=== PATIENT | male | born 1980 | race Caucasian/White ===

== ENCOUNTER 2017-03-01 12:25 | Inpatient (IN) | payer OTHER ==
[~2017-03-01] VITALS: Ht 172.7 cm; Wt 64.8 kg
[2017-03-01] MEDS ORDERED: ONDANSETRON INJ 2 MG/ML 2 ML VIAL IV STA (12:31)
[2017-03-01] MEDS ORDERED: MoRPHine SULFATE 10 MG/ML CARP/VIAL IV STA (12:31)
[2017-03-01] MEDS ORDERED: ALBUTEROL 0.5% NEB SOLN 2.5 MG/0.5 ML VIAL INH STA (12:34)
[2017-03-01] MEDS ORDERED: MoRPHine SULFATE 2 MG/ML CARP ONE (12:39)
[2017-03-01] MEDS ORDERED: OPTIRAY 320 IV PRN (12:45)
--- NOTE | 2017-03-01 12:52 | EMERGENCY ROOM VISIT NOTE ---
History Report prepared by Renetta: Meek Samuel Under the Supervision of: Dr. Dell Monte M.D. First contact with patient: 12:25 Stated Complaint: chest pain History of Present Illness The patient is a 36 year old male who presents to the Emergency Room with complaints of constant chest pain starting this morning when he woke up. The patient was sleeping when he got chest pain, and it is worse with movement and deep inspiration. The patient was given 81mg of aspirin and nitro, and they did not help with the pain. He states that the pain is radiating into his neck, back , and left shoulder. The patient additionally is complaining of nausea. The patient has a family history of heart disease. He states that he used to smoke. Source of History: patient, EMS Onset: this morning Position: chest Timing: constant Modifying Factors (Worsening): movement, other (Deep inspiration) Associated Symptoms: + neck pain, + nausea, + back pain Note: Associated symptoms: left shoulder pain. Review of Systems See HPI for pertinent positives & negatives. A total of 10 systems reviewed and were otherwise negative. Past Medical & Surgical Medical Problems: (1) No Known Active Medical Problems Family History Heart disease Social History Smoking Status: Former Smoker Housing Status: other (group home) Occupation Status: other (prisoner) Current/Historical Medications Scheduled Aspirin (Aspirin Ec), 81 MG PO DAILY Clindamycin Hcl (Clindamycin Hcl), 150 MG PO BID Ibuprofen (Advil), 200-600 MG PO Q4H Nitroglycerin (Nitrostat), 0.4 MG UT PRN Allergies Coded Allergies: No Known Allergies (Unverified , 03/01/17) Physical Exam Vital Signs Date Time Temp Pulse Resp B/P (MAP) Pulse Ox O2 Delivery O2 Flow Rate FiO2 03/01/17 13:44 85 16 117/70 95 Room Air 03/01/17 12:49 98 Room Air 03/01/17 12:46 94 03/01/17 12:37 98 Room Air 03/01/17 12:30 36.8 80 16 127/86 98 Room Air Physical Exam GENERAL: Patient is a diaphoretic-appearing well-nourished male HEAD: Normocephalic atraumatic EYES: Ocular movements intact pupils equal and react to light OROPHARYNX mucous membranes are moist no exudates present no erythema or edema present NECK: Supple no nuchal rigidity CHEST: Good equal expansion LUNGS: Wheezing at the lung bases. CARDIAC: Normal S1 and S2 ABDOMEN: Soft nontender no guarding BACK: No CVA tenderness EXTREMITIES: No pain upon palpation normal muscle strength in all groups no clubbing cyanosis or edema NEURO: Patient is following commands and answering questions appropriately. Alert and oriented x3 Cranial Nerves 2-12 grossly intact Medical Decision & Procedures Laboratory Results Test 03/01/17 12:30 03/01/17 13:23 03/01/17 13:31 Creatine Kinase MB Ratio (0-3.0) Bedside Hemoglobin 15.0 g/dl (14.0-18.0) Bedside Hematocrit 44 % (42-52) Bedside Sodium 141 mEq/L (135-144) Bedside Potassium 4.9 mEq/L (3.3-5.0) Bedside Chloride 105 mEq/L (101-112) Bedside Total CO2 24 mEq/l (24-31) Anion Gap 18.0 mmol/L (16-25) Bedside Blood Urea Nitrogen 9 mg/dl (7-18) Bedside Creatinine 0.8 mg/dl (0.6-1.3) Bedside Glucose (other) 139 mg/dl (70-99) Bedside Ionized Calcium (Shauna) 1.19 mmol/l (1.12-1.32) Medications Administered Medications (Trade) Dose Ordered Sig/Avinash Route Start Time Stop Time Status Last Admin Dose Admin Morphine Sulfate (MoRPHine SULFATE INJ) 6 mg NOW STAT IV 03/01/17 12:31 03/01/17 12:33 DC 03/01/17 12:31 6 MG Ondansetron HCl (Zofran Inj) 4 mg NOW STAT IV 03/01/17 12:31 03/01/17 12:34 DC 03/01/17 12:31 4 MG Albuterol Sulfate (Ventolin 0.5% 2.5MG/0.5ML Neb) 2.5 mg NOW STAT INH 03/01/17 12:34 03/01/17 12:35 DC 03/01/17 12:34 2.5 MG Morphine Sulfate (MoRPHine SULFATE INJ) 4 mg NOW STAT IV 03/01/17 13:24 03/01/17 13:25 DC 03/01/17 13:24 4 MG ECG Indication: chest pain Rate (beats per minute): 81 Rhythm: sinus rhythm Findings: no acute ischemic change, no ectopy ED Course 1225: Past medical records reviewed. The patient was evaluated in room B1. A complete history and physical examination was performed. Medical Decision Differential diagnosis: Etiologies such as cardiac ischemia, aortic dissection, pulmonary embolism, pneumonia, pneumothorax, musculoskeletal, infections, pericarditis, myocarditis , esophageal rupture, gastrointestinal, as well as others were entertained. Scribe Attestation The scribe's documentation has been prepared under my direction and personally reviewed by me in its entirety. I confirm that the note above accurately reflects all work, treatment, procedures, and medical decision making performed by me.
[2017-03-01] MEDS ORDERED: LIDOCAINE HCL 1% 20 ML VIAL ONE (12:55)
--- NOTE | 2017-03-01 12:55 | DIAGNOSTIC IMAGING REPORT ---
SINGLE VIEW CHEST CLINICAL HISTORY: Atypical chest pain. FINDINGS: An AP, portable, upright chest radiograph is obtained. No prior studies are available for comparison at the time of dictation. The examination is degraded by portable technique and patient rotation. The cardiomediastinal silhouette is unremarkable. There is a left-sided tension pneumothorax with near-complete atelectasis of the left lung and rightward shift the mediastinum in trachea. Slightly increased density of the right hemithorax is likely related to atelectasis. No pneumothorax is seen. The bony thorax is grossly intact. IMPRESSION: There is a large left-sided tension pneumothorax with near-complete atelectasis of the left lung. Emergent findings were called to Dr. Monte in the emergency department at time of interpretation. Electronically signed by: Jeremie Perry M.D. 03/01/2017 12:54 PM Dictated Date/Time: 03/01/2017 12:52 PM
[2017-03-01] MEDS ORDERED: CLIN150C15 PO (13:17)
[2017-03-01] MEDS ORDERED: ASPI81TA28 PO (13:18)
[2017-03-01] MEDS ORDERED: NITR0.4S UT (13:18)
[2017-03-01] MEDS ORDERED: IBUP-1050 PO (13:18)
[2017-03-01] MEDS ORDERED: MoRPHine SULFATE 4 MG/ML 1 ML CARP\\VIAL IV STA (13:24)
--- NOTE | 2017-03-01 13:34 | DIAGNOSTIC IMAGING REPORT ---
CHEST ONE VIEW PORTABLE HISTORY: Left-sided CHEST PAIN COMPARISON: Chest 03/01/2017. FINDINGS: Interval placement left pleural pigtail catheter. This terminates in the left mid pleural space. Partial reexpansion of the left lung with a moderate pneumothorax remaining. Opacity within the left perihilar region likely represent atelectasis. The mediastinal shift has resolved. The right lung is clear. The heart is normal in size. Small amount of left chest wall subcutaneous emphysema. IMPRESSION: Status post placement of a left pleural pigtail catheter which terminates in the left mid pleural space with partial reexpansion of the left lung. There is a moderate pneumothorax remaining on the left. The mediastinal shift has resolved. Electronically signed by: Jeramy García M.D. 03/01/2017 1:32 PM Dictated Date/Time: 03/01/2017 1:30 PM
--- NOTE | 2017-03-01 13:43 | EMERGENCY ROOM VISIT NOTE ---
History Report prepared by Renetta: Brett Venegas Under the Supervision of: Dr. Leonid Larsen M.D. First contact with patient: 13:11 Chief Complaint: CHEST PAIN Stated Complaint: chest pain Nursing Triage Summary: pt awoke this afternoon for lunch stated he developed sudden onset of chest pain he was given 1 baby asa at the detention and assessed by medical who called 911 upon arrival of EMS pt was diaphoretic, pale, sob and hypotensive he was reporting left chest pain with radiation up his neck into his shoulder he was given 3 baby asa and 1 nitro he was unable to be given more because of hypotension History of Present Illness The patient is a 36 year old male who presents to the Emergency Room with complaints of constant chest pain starting this morning when he woke up. The patient was sleeping when he got chest pain, and it is worse with movement and deep inspiration. The patient was given 81mg of aspirin and nitro, and they did not help with the pain. He states that the pain is radiating into his neck, back , and left shoulder. The patient additionally is complaining of nausea. The patient has a family history of heart disease. He states that he used to smoke. Source of History: patient, transfer records, other Onset: this morning Position: chest Timing: constant Modifying Factors (Worsening): movement, other (deep inspiration) Associated Symptoms: + neck pain, + nausea, + back pain Note: Associated symptoms: left shoulder pain Review of Systems See HPI for pertinent positives & negatives. A total of 10 systems reviewed and were otherwise negative. Past Medical & Surgical Medical Problems: (1) No Known Active Medical Problems Old medical records were reviewed. Nurse's notes were reviewed and I agree with. Denies history of pneumothorax or recent, Family History Heart disease Social History Smoking Status: Former Smoker Alcohol Use: none Drug Use: none Housing Status: other (detention) Occupation Status: other (prisoner) Current/Historical Medications Scheduled Aspirin (Aspirin Ec), 81 MG PO DAILY Clindamycin Hcl (Clindamycin Hcl), 150 MG PO BID Ibuprofen (Advil), 200-600 MG PO Q4H Nitroglycerin (Nitrostat), 0.4 MG UT PRN Allergies Coded Allergies: No Known Allergies (Unverified , 03/01/17) Physical Exam Vital Signs Date Time Temp Pulse Resp B/P (MAP) Pulse Ox O2 Delivery O2 Flow Rate FiO2 03/01/17 12:49 98 Room Air 03/01/17 12:46 94 03/01/17 12:37 98 Room Air 03/01/17 12:30 36.8 80 16 127/86 98 Room Air Physical Exam GENERAL: Patient is a diaphoretic-appearing well-nourished male HEAD: Normocephalic atraumatic EYES: Ocular movements intact pupils equal and react to light OROPHARYNX mucous membranes are moist no exudates present no erythema or edema present NECK: Supple no nuchal rigidity CHEST: Good equal expansion LUNGS: Wheezing at the lung bases. Absent breath sounds on left CARDIAC: Normal S1 and S2 ABDOMEN: Soft nontender no guarding BACK: No CVA tenderness EXTREMITIES: No pain upon palpation normal muscle strength in all groups no clubbing cyanosis or edema NEURO: Patient is following commands and answering questions appropriately. Alert and oriented x3 Cranial Nerves 2-12 grossly intact Medical Decision & Procedures ER Provider Diagnostic Interpretation: Radiology results as stated below per my review and radiologist interpretation: CT ANGIOGRAM OF THE CHEST CLINICAL HISTORY: Atypical chest pain. Tension pneumothorax. COMPARISON STUDY: Chest radiograph dated 03/01/2017. TECHNIQUE: Following the IV administration of 112 cc of Optiray 320, CT angiogram of the chest was performed from the upper abdomen to the thoracic inlet utilizing the pulmonary embolus protocol. Images are reviewed in the axial, sagittal, and coronal planes. 3-D MIPS images are created and assessed. IV contrast was administered without complication. A dose lowering technique was utilized adhering to the principles of ALARA. CT DOSE: 205.26 mGy.cm FINDINGS: Thyroid: Imaged portions of the thyroid gland are normal in size and attenuation. Thoracic aorta: The thoracic aorta is normal in caliber and demonstrates standard 3-vessel arch anatomy. No dissection is seen. Pulmonary vasculature: The pulmonary trunk is normal in caliber. There are no filling defects identified in main, lobar, or proximal segmental pulmonary branches to suggest pulmonary embolus. Evaluation of the peripheral vessels is degraded by motion artifact. Heart: The heart is normal in size and configuration, and without pericardial effusion. There are age advanced coronary artery calcifications. Lungs and pleural spaces: Evaluation of lung parenchyma is degraded by motion artifact. A right left-sided chest tube is in place. This enters anterolaterally between the fourth and fifth ribs. There is a moderate to large residual left pneumothorax, with significant atelectasis of the left lung. Emphysematous change with numerous apical blebs are identified. The trachea appears midline. The right lung appears clear. Mediastinum: There is moderate shift the mediastinum. There is no mediastinal lymphadenopathy. Winnie: Clear. Axillae: There is no axillary lymphadenopathy. Upper abdomen: A tiny hiatal hernia is noted. Partially visualized upper abdominal viscera is otherwise within normal limits. Skeletal structures: No lytic or blastic bony lesions are seen. Soft tissues: Subcutaneous emphysema is noted along the left chest wall. IMPRESSION: 1. Motion degraded examination. 2. There is no evidence of pulmonary embolus in the main, lobar, or proximal segmental pulmonary arteries. 3. A left-sided chest tube has been placed. There is a moderate to large residual left pneumothorax with associated atelectasis of left lung and mild rightward shift of the mediastinum. 4. The trachea appears midline. 5. The right lung appears clear. 6. Emphysema with numerous apical blebs. 7. There is age advanced atherosclerotic calcification of the coronary arteries. Electronically signed by: Jeremie Perry M.D. 03/01/2017 2:07 PM Dictated Date/Time: 03/01/2017 2:01 PM SINGLE VIEW CHEST CLINICAL HISTORY: Atypical chest pain. FINDINGS: An AP, portable, upright chest radiograph is obtained. No prior studies are available for comparison at the time of dictation. The examination is degraded by portable technique and patient rotation. The cardiomediastinal silhouette is unremarkable. There is a left-sided tension pneumothorax with near-complete atelectasis of the left lung and rightward shift the mediastinum in trachea. Slightly increased density of the right hemithorax is likely related to atelectasis. No pneumothorax is seen. The bony thorax is grossly intact. IMPRESSION: There is a large left-sided tension pneumothorax with near-complete atelectasis of the left lung. Emergent findings were called to Dr. Monte in the emergency department at time of interpretation. Electronically signed by: Jeremie Perry M.D. 03/01/2017 12:54 PM Dictated Date/Time: 03/01/2017 12:52 PM CHEST ONE VIEW PORTABLE HISTORY: Left-sided CHEST PAIN COMPARISON: Chest 03/01/2017. FINDINGS: Interval placement left pleural pigtail catheter. This terminates in the left mid pleural space. Partial reexpansion of the left lung with a moderate pneumothorax remaining. Opacity within the left perihilar region likely represent atelectasis. The mediastinal shift has resolved. The right lung is clear. The heart is normal in size. Small amount of left chest wall subcutaneous emphysema. IMPRESSION: Status post placement of a left pleural pigtail catheter which terminates in the left mid pleural space with partial reexpansion of the left lung. There is a moderate pneumothorax remaining on the left. The mediastinal shift has resolved. Electronically signed by: Jeramy García M.D. 03/01/2017 1:32 PM Dictated Date/Time: 03/01/2017 1:30 PM Laboratory Results Laboratory studies as stated above per my review. Medications Administered Medications (Trade) Dose Ordered Sig/Avinash Route Start Time Stop Time Status Last Admin Dose Admin Morphine Sulfate (MoRPHine SULFATE INJ) 6 mg NOW STAT IV 03/01/17 12:31 03/01/17 12:33 DC 03/01/17 12:31 6 MG Ondansetron HCl (Zofran Inj) 4 mg NOW STAT IV 03/01/17 12:31 03/01/17 12:34 DC 03/01/17 12:31 4 MG Albuterol Sulfate (Ventolin 0.5% 2.5MG/0.5ML Neb) 2.5 mg NOW STAT INH 03/01/17 12:34 03/01/17 12:35 DC 03/01/17 12:34 2.5 MG Procedure Tube Thoracostomy Indication: Left-sided tension Pneumothorax This patient has a left-sided tension pneumothorax and needs emergent chest tube placement. I explained the risks and benefits and he freely consented. The area was numbed with 1% lidocaine. Using the fifth intercostal space the chest tube was inserted. I use the pigtail chest tube and the Seldinger technique. With the needle insertion, there was a gush of air felt and using Seldinger technique the pigtail catheter was easily placed and secured. It was attached to the Pleur-evac suction. The patient tolerated the procedure without difficulty or complications. The follow-up chest x-ray shows partial expansion of the lungs and room resolution of the tension aspect. The patient is doing much better and feels significantly better. , ECG Indication: SOB/dyspnea Rate (beats per minute): 81 Rhythm: normal sinus Findings: no acute ischemic change, no ectopy ED Course 1225: The patient was evaluated by Dr. Monte, ED. 1231: Dr. Monte ordered Ondansetron HCl 4mg IV, Morphine Sulfate 6mg IV 1234: Dr. Monte ordered Albuterol Sulfate 2.5mg INH 1252: Past medical records reviewed. The patient was evaluated in room B02, and a complete history and physical examination were performed. A pigtail chest tube was placed. 1255: Ordererd Lidocaine HCl 20ml .ROUTE 1313: I discussed the patient's case with Dr. Hsu, Thoracic Surgery. He will evaluate the patient. 1319: I reevaluated the patient. He is doing well. I discussed his second chest x-ray with him. 1322: I reevaluated the patient, and he is feeling much better. 1324: Ordered Morphine Sulfate 4mg IV 1408: I discussed the patient's case with Susanna Pepper PA-C, [facility]. The patient will be evaluated for further management and care. 1409: I reevaluated the patient. He is in no distress. 1427: I reevaluated the patient. Dr. Arizmendi, [facility], is in the room now. 1519: I reevaluated the patient, and he is still resting comfortably. Medical Decision Differentials include, but are not limited to; infections, reactive airway disease, pneumonia, pneumothorax, COPD, CHF, cardiac ischemia, pulmonary embolism, musculoskeletal, gastrointestinal. This patient comes in as described above. He was initially seen by Dr. Monte who placed some orders and had to see a critical patient he asked me to see the patient as the patient was found of tension pneumothorax. I went in to see the patient he was on supplement oxygen had a normal blood pressure 100% pulse ox. Given his tension pneumothorax, he needed a chest tube placed emergently. The procedures plain to the patient and he freely consented. A chest tube was placed as outlined above using a pigtail catheter. This minimally invasive compared to a standard chest tube and he tolerated this well and is feeling significantly better. He has no acute electrolyte or metabolic abnormalities. His has nothing to suggest cardiac disease. I have discussed with Dr. Hsu. He is in the operating room as going to to see the patient hospital as well. With the tube placement along has started reexpand he still does have a moderate size residual pneumothorax but is doing much better. He will be admitted for further treatment and evaluation. The hospitalist has also seen him in the ER. While he was here in the ER he remained stable is feeling much better. Dr. Hsu did come and see him. They are going to place a larger tube as he has not fully reexpanded with a smaller tube. He will be further admitted. Medication Reconcilliation Current Medication List: was personally reviewed by me Blood Pressure Screening Patient's blood pressure: Normal blood pressure Blood pressure disposition: Did not require urgent referral Consults Time Called: 1312 Consulting Physician: Dr. Hsu, Thoracic Surgery Returned Call: 1313 I discussed the patient's case with Dr. Hsu, Thoracic Surgery. He will evaluate the patient. Additional Consults: Time Called: 1315 Consulted Physician: Susanna Pepper PA-C, [facility] Returned Call: 1406 Additional Comments: I discussed the patient's case [facility] The patient will be evaluated for further management and care. Impression Primary Impression: Tension pneumothorax, spontaneous Critical Care I have personally spent greater than 30 minutes of critical care time in the direct management of this patient. This includes bedside care, interpretation of diagnostic studies, and testing, discussion with consultants, patient, and family members, and other required patient management activities. This 30 minutes is in excess of all separately billable procedures. Scribe Attestation The scribe's documentation has been prepared under my direction and personally reviewed by me in its entirety. I confirm that the note above accurately reflects all work, treatment, procedures, and medical decision making performed by me. Departure Information Dispostion Being Evaluated By Hospitalist Referrals [facility] (PCP) Patient Instructions My [facility]
[2017-03-01 13:45] LABS: ISTAT CREATININE 0.8 mg/dl (0.6-1.3); ISTAT IONIZED CALCIUM 1.19 mmol/l (1.12-1.32)
[2017-03-01 13:56] LABS: BASO % 0.2 %; BASO ABS # 0.02 K/uL (0-0.2); COMPLETE YES; EOS % 0.7 %; HEMATOCRIT 41.8 % (42-52); IG% 0.8 %; LYMPH % 14.4 %; LYMPH ABS # 1.82 K/uL (1.2-3.4); MEAN CELL VOLUME 88.9 fL (80-100); MEAN CORPUSCULAR HEMOGLOBIN 30.9 pg (25-34); MEAN CORPUSCULAR HGB CONC 34.7 g/dl (32-36); MEAN PLATELET VOLUME 10.3 fL (7.4-10.4); MONO % 4.3 %; NEUT % 79.6 %; PLATELET COUNT 200 K/uL (130-400)
[2017-03-01 13:58] LABS: ALT/SGPT 61 U/L (12-78); AST/SGOT 23 U/L (15-37); BLOOD UREA NITROGEN 8 mg/dl (7-18); BUN/CREATININE RATIO 8.9 (10-20); CALCIUM 8.8 mg/dl (8.5-10.1); CARBON DIOXIDE 27 mmol/L (21-32); CHLORIDE 107 mmol/L (98-107); CREATININE 0.87 mg/dl (0.60-1.40); GLUCOSE 137 mg/dl (70-99); POTASSIUM 4.9 mmol/L (3.5-5.1); SODIUM 139 mmol/L (136-145)
[2017-03-01 14:04] LABS: ALKALINE PHOSPHATASE 92 U/L (45-117); CKMB/CK RATIO 0.8 (0-3.0)
--- NOTE | 2017-03-01 14:09 | DIAGNOSTIC IMAGING REPORT ---
CT ANGIOGRAM OF THE CHEST CLINICAL HISTORY: Atypical chest pain. Tension pneumothorax. COMPARISON STUDY: Chest radiograph dated 03/01/2017. TECHNIQUE: Following the IV administration of 112 cc of Optiray 320, CT angiogram of the chest was performed from the upper abdomen to the thoracic inlet utilizing the pulmonary embolus protocol. Images are reviewed in the axial, sagittal, and coronal planes. 3-D MIPS images are created and assessed. IV contrast was administered without complication. A dose lowering technique was utilized adhering to the principles of ALARA. CT DOSE: 205.26 mGy.cm FINDINGS: Thyroid: Imaged portions of the thyroid gland are normal in size and attenuation. Thoracic aorta: The thoracic aorta is normal in caliber and demonstrates standard 3-vessel arch anatomy. No dissection is seen. Pulmonary vasculature: The pulmonary trunk is normal in caliber. There are no filling defects identified in main, lobar, or proximal segmental pulmonary branches to suggest pulmonary embolus. Evaluation of the peripheral vessels is degraded by motion artifact. Heart: The heart is normal in size and configuration, and without pericardial effusion. There are age advanced coronary artery calcifications. Lungs and pleural spaces: Evaluation of lung parenchyma is degraded by motion artifact. A right left-sided chest tube is in place. This enters anterolaterally between the fourth and fifth ribs. There is a moderate to large residual left pneumothorax, with significant atelectasis of the left lung. Emphysematous change with numerous apical blebs are identified. The trachea appears midline. The right lung appears clear. Mediastinum: There is moderate shift the mediastinum. There is no mediastinal lymphadenopathy. Winnie: Clear. Axillae: There is no axillary lymphadenopathy. Upper abdomen: A tiny hiatal hernia is noted. Partially visualized upper abdominal viscera is otherwise within normal limits. Skeletal structures: No lytic or blastic bony lesions are seen. Soft tissues: Subcutaneous emphysema is noted along the left chest wall. IMPRESSION: 1. Motion degraded examination. 2. There is no evidence of pulmonary embolus in the main, lobar, or proximal segmental pulmonary arteries. 3. A left-sided chest tube has been placed. There is a moderate to large residual left pneumothorax with associated atelectasis of left lung and mild rightward shift of the mediastinum. 4. The trachea appears midline. 5. The right lung appears clear. 6. Emphysema with numerous apical blebs. 7. There is age advanced atherosclerotic calcification of the coronary arteries. Electronically signed by: Jeremie Perry M.D. 03/01/2017 2:07 PM Dictated Date/Time: 03/01/2017 2:01 PM
[2017-03-01] MEDS ORDERED: ACETAMINOPHEN 325 MG TAB PO PRN (14:45)
[2017-03-01] MEDS ORDERED: ALUMINUM/MAGNESIUM/SIMETH (MAALOX MAX) 30 ML UDC PO PRN (14:45)
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
[2017-03-01] MEDS ORDERED: LIDOCAINE/EPINEPHRINE 1% 20 ML VIAL ONE (16:06)
[2017-03-01] MEDS ORDERED: KETOROLAC TROMETHAMINE 15 MG/ML VIAL IV PRN (16:45)
[2017-03-01] MEDS ORDERED: OXYCODONE HCL IR 5 MG TAB (IMMEDIATE RELEASE) PO PRN (16:45)
--- NOTE | 2017-03-01 16:58 | DIAGNOSTIC IMAGING REPORT ---
CHEST ONE VIEW PORTABLE HISTORY: 36 years-old Male left chest tube placement status post left-sided chest tube placement COMPARISON: Chest radiograph 03/01/2017 TECHNIQUE: Portable upright AP view of the chest FINDINGS: Cardiomediastinal and hilar silhouettes are within normal limits. There has been interval placement of a large bore left-sided chest tube with distal tip overlying the left lung apex. There is subcutaneous emphysema along the left lateral chest wall. The pigtail catheter has previously been removed. There is improved aeration of the left lung with linear subsegmental opacities seen within the left midlung and left lung base. No definite left-sided pneumothorax identified. Right lung is clear. The bones are grossly intact. IMPRESSION: 1. Status post placement of a large bore left-sided chest tube with distal tip overlying the left lung apex. There is improved aeration of the left lung without definite pneumothorax identified. Continued follow-up recommended. 2. Interval removal of the left pigtail pleural catheter. 3. Subsegmental linear opacities of the left midlung and left lung base suggest atelectasis. The above report was generated using voice recognition software. It may contain grammatical, syntax or spelling errors. Electronically signed by: Wes Drake M.D. 03/01/2017 4:57 PM Dictated Date/Time: 03/01/2017 4:54 PM
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
[2017-03-01 17:24] VITALS: BP 143/87; PULSE 81; TEMP 36.9; Ht 172.7 cm; Wt 64.8 kg
[2017-03-01] MEDS ORDERED: INFLUENZA ADMINISTRATION CHARGE ONE (18:30)
[2017-03-01] MEDS ORDERED: INFLUENZA VIRUS QUAD VACCINE 0.5 ML SYR IM. ONE (18:30)
[2017-03-01] MEDS: ACETAMINOPHEN 325 MG TAB PO SCH ×2 (19:21→23:32)
[2017-03-01 19:52] VITALS: BP 125/81; PULSE 70; TEMP 36.9; O2SAT 95
[2017-03-02] VITALS (8 sets, daily range): BP systolic 121–136; BP diastolic 73–86; PULSE 61–73; TEMP 36.3–36.9; O2SAT 94–99
[2017-03-02] MEDS: ACETAMINOPHEN 325 MG TAB PO SCH ×3 (05:46→16:48)
--- NOTE | 2017-03-02 07:23 | DIAGNOSTIC IMAGING REPORT ---
CHEST ONE VIEW PORTABLE CLINICAL HISTORY: 36 years-old Male presenting with pneumothorax. TECHNIQUE: Portable upright AP view of the chest was obtained. COMPARISON: 03/01/2017. FINDINGS: Large bore left pleural drain terminates at the left apex. Associated subcutaneous/soft tissue emphysema over the left lateral chest wall. Cardiac mediastinal silhouette normal. Slight decreased aeration of the left lung with significantly increased size of the left pneumothorax, which is primarily anterolateral in location. Right lung and pleural space clear. Osseous structures normal. Upper abdomen normal. IMPRESSION: 1. Significant interval increase in size of the left pneumothorax. Given the unchanged location of the left pleural drain, the suggest air leak. The report will be called/faxed according to standard departmental protocol. Electronically signed by: Josué oHrton M.D. 03/02/2017 7:22 AM Dictated Date/Time: 03/02/2017 7:20 AM
--- NOTE | 2017-03-02 07:29 | Surgery Progress Note ---
Subjective Date of Service: Mar 02, 2017. Pt. notes breathing is better since chest tube placed. He notes minor discomfort from chest tube. Objective Vitals Date Time Temp Pulse Resp B/P (MAP) Pulse Ox O2 Delivery O2 Flow Rate FiO2 03/02/17 04:29 36.7 61 17 128/77 (94) 95 Room Air 03/02/17 04:00 Room Air 03/02/17 00:28 36.6 62 18 129/76 (93) 96 Room Air 03/02/17 00:00 Room Air 03/01/17 20:00 Room Air 03/01/17 19:52 36.9 70 16 125/81 (96) 95 Room Air 03/01/17 17:24 36.9 81 18 143/87 Room Air 03/01/17 16:36 89 03/01/17 16:33 89 16 125/84 95 Room Air 03/01/17 14:56 71 16 120/67 95 Room Air 03/01/17 13:44 85 16 117/70 95 Room Air 03/01/17 12:49 98 Room Air 03/01/17 12:46 94 03/01/17 12:37 98 Room Air 03/01/17 12:30 36.8 80 16 127/86 98 Room Air Physical Exam General: + well developed, + well nourished, No distress CV: + RRR Pulmonary: + lungs clear, No accessory muscle use, No respiratory distress Extremities: No calf tenderness Neurologic: + alert & oriented x 3 Radiology CXR shows left pneumothorax smaller than what was noted at time of admission ( CXR taken with CT on water seal) Drains / Tubes chest tube (air leak noted; minimzl drainage since insertion ) Assessment & Plan 36 year old male with spontaneous pneumothorax -concern noted for tension pneumothorax in ED: -ED physician insertion pigtail catheter with clinical improvement, but incomplete resolution of pneumothorax CT scan of chest (03/01/17) showed presence of blebs -20 Mexican chest tube inserted in ED with near complete resolution of pneumothorax -continue chest tube -due to continue air leak pt. will require surgical bleb stapling--will arrange for 03/04/17 -encourage ambulation and use of IS OTHER -add lovenox for DVT prevention
[2017-03-02 07:52] LABS: MEAN CELL VOLUME 89.3 fL (80-100); MEAN CORPUSCULAR HEMOGLOBIN 30.5 pg (25-34); MEAN CORPUSCULAR HGB CONC 34.1 g/dl (32-36); MEAN PLATELET VOLUME 9.9 fL (7.4-10.4); PLATELET COUNT 189 K/uL (130-400); RED BLOOD COUNT 4.59 M/uL (4.7-6.1); WHITE BLOOD COUNT 9.31 K/uL (4.8-10.8)
[2017-03-02 08:17] LABS: BUN/CREATININE RATIO 14.1 (10-20); CALCIUM 9.4 mg/dl (8.5-10.1); CREATININE 0.92 mg/dl (0.60-1.40); POTASSIUM 4.2 mmol/L (3.5-5.1)
[2017-03-02] MEDS ORDERED: ASPIRIN 81 MG ECTAB PO SCH (09:00)
[2017-03-02 11:52] LABS: PROTHROMBIN TIME (PATIENT) 10.7 SECONDS (9.0-12.0)
[2017-03-02] MEDS ORDERED: ENOXAPARIN 40 MG/0.4 ML SYR SQ ONE (12:00)
--- NOTE | 2017-03-02 14:24 | Anesthesiology Progress Note ---
Anesthesia Progress Note Date of Service Mar 02, 2017. Progress Notes Pt is scheduled for L VATs on 03/04/17. Pt is a 36M h/o asthma, smoker who presented with a L sided pneumothorax. A chest tube was placed, but the pneumothorax persists. The pt has good functional status. The pt is an acceptable candidate for general anesthesia. Consent was obtained from the patient. All questions/concerns were addressed.
--- NOTE | 2017-03-02 18:08 | Progress Note ---
Medicine Progress Note Date & Time of Visit: Mar 02, 2017 at 16:20 . Subjective Presented to the ED yesterday with spontaneous left pneumothorax. Pleural pigtail catheter placement with partial expansion of the left lung. Thoracic Surgery consulted. 20 Zimbabwean chest tube subsequently inserted with nearly complete resolution of the thorax. Has some discomfort from the chest tube. No shortness of breath. No nausea or vomiting. No fever. . Objective Last 8 Hrs Date Time Temp Pulse Resp B/P (MAP) Pulse Ox O2 Delivery O2 Flow Rate FiO2 03/02/17 16:00 Room Air 03/02/17 15:28 36.5 73 18 121/73 (89) 96 Room Air 03/02/17 12:00 36.7 69 16 129/79 (96) 96 03/02/17 12:00 Room Air Physical Exam: General- no distress Neck- trachea midline Lungs- clear to auscultation Heart- regular Thorax- left-sided chest tube Abdomen- normal bowel sounds, soft, nontender Extremities- SCDs applied, no edema or calf tenderness Neuro- alert . Laboratory Results: Last 24 Hours Test 03/02/17 07:26 03/02/17 11:26 White Blood Count 9.31 K/uL Red Blood Count 4.59 M/uL Hemoglobin 14.0 g/dL Hematocrit 41.0 % Mean Corpuscular Volume 89.3 fL Mean Corpuscular Hemoglobin 30.5 pg Mean Corpuscular Hemoglobin Concent 34.1 g/dl RDW Standard Deviation 41.9 fL RDW Coefficient of Variation 12.9 % Platelet Count 189 K/uL Mean Platelet Volume 9.9 fL Sodium Level 140 mmol/L Potassium Level 4.2 mmol/L Chloride Level 105 mmol/L Carbon Dioxide Level 29 mmol/L Anion Gap 7.0 mmol/L Blood Urea Nitrogen 13 mg/dl Creatinine 0.92 mg/dl Est Creatinine Clear Calc Drug Dose 96.7 ml/min Estimated GFR () 121.9 Estimated GFR (Non- 105.1 BUN/Creatinine Ratio 14.1 Random Glucose 86 mg/dl Calcium Level 9.4 mg/dl Prothrombin Time 10.7 SECONDS Prothromb Time International Ratio 1.0 Date/Time Source Procedure Growth Status 03/01/17 19:25 Nasal MRSA DNA Surveillance Screen - Final Specimen Negative for MRSA by DNA Probe Complete Assessment & Plan SPONTANEOUS LEFT TENSION PNEUMOTHORAX Presented with acute chest pain, dyspnea, hypotension. Found to have a tension pneumothorax. Pleural pigtail catheter insertion with partial reexpansion of left lung. 20 Zimbabwean chest tube inserted with better expansion of the lung. Thoracic Surgery consulted. CT imaging demonstrated blebs. Has persistent air leak. Stapling of blebs anticipated on 03/04. VTE PROPHYLAXIS SCDs initially ordered. SQ enoxaparin added. Ambulate as able. DISPOSITION Anticipate return to [facility] when medically stable. . Current Inpatient Medications: Current Inpatient Medications Medications (Trade) Dose Ordered Sig/Avinash Route Start Time Stop Time Status Last Admin Dose Admin Ioversol (Optiray 320) 100 ml UD PRN IV 03/01/17 12:45 03/05/17 12:44 Aspirin (Ecotrin Tab) 81 mg DAILY PO 03/02/17 09:00 04/01/17 08:59 03/02/17 07:49 81 MG Al Hydrox/Mg Hydrox/Simethicone (Maalox Max Susp) 15 ml Q4H PRN PO 03/01/17 14:45 03/31/17 14:44 Morphine Sulfate (MoRPHine SULFATE INJ) 2 mg Q4 PRN IV 03/01/17 14:45 03/15/17 14:44 Acetaminophen (Tylenol Tab) 650 mg Q6 PO 03/01/17 18:00 03/31/17 17:59 03/02/17 16:48 650 MG Ketorolac Tromethamine (Toradol Inj) 15 mg Q6H PRN IV 03/01/17 16:45 03/06/17 16:44 03/01/17 21:01 15 MG Oxycodone HCl (Roxicodone Immediate Rel Tab) 5 mg Q6H PRN PO 03/01/17 16:45 03/15/17 16:44 Enoxaparin Sodium (Lovenox Inj) 40 mg QAM SQ 03/03/17 09:00 04/02/17 08:59
[2017-03-03] VITALS (11 sets, daily range): BP systolic 121–159; BP diastolic 73–95; PULSE 63–73; TEMP 36.4–36.8; O2SAT 93–96
[2017-03-03] MEDS: MoRPHine SULFATE 2 MG/ML CARP IV PRN (02:44)
[2017-03-03] MEDS: ACETAMINOPHEN 325 MG TAB PO SCH ×4 (06:26→18:05)
--- NOTE | 2017-03-03 07:37 | DIAGNOSTIC IMAGING REPORT ---
CHEST ONE VIEW PORTABLE HISTORY: 36 years-old Male pneumothorax follow-up study in a patient with pneumothorax. COMPARISON: Chest radiograph 03/02/2017 TECHNIQUE: Portable upright AP view of the chest FINDINGS: Cardiac silhouette is within normal limits. Right lung is clear. Large bore left-sided chest tube is again seen with distal tip projecting at the left lung apex. Moderate sized left pneumothorax is again seen which appears with stable to slightly decreased in size from comparison study 03/02/2017. Linear subsegmental opacities of the left lung base suggest atelectasis. Hyperinflation with emphysematous changes redemonstrated. Bones are grossly intact. IMPRESSION: Stable positioning of left-sided chest tube with stable to slightly decreased size of left pneumothorax. The above report was generated using voice recognition software. It may contain grammatical, syntax or spelling errors. Electronically signed by: Wes Drake M.D. 03/03/2017 7:36 AM Dictated Date/Time: 03/03/2017 7:33 AM
[2017-03-03] MEDS: ENOXAPARIN 40 MG/0.4 ML SYR SQ SCH (07:50)
--- NOTE | 2017-03-03 11:34 | Surgery Progress Note ---
Subjective Date of Service: Mar 03, 2017. Pt. offers no new complaint--state breathing is better than what he noted prior to admission. Objective Vitals Date Time Temp Pulse Resp B/P (MAP) Pulse Ox O2 Delivery O2 Flow Rate FiO2 03/03/17 08:00 96 Room Air 03/03/17 07:48 36.5 63 22 146/73 (97) 96 Room Air 03/03/17 04:00 95 Room Air 03/03/17 03:50 36.4 66 20 122/74 (90) 95 Room Air 03/02/17 23:59 Room Air 03/02/17 23:11 36.9 68 18 136/86 (103) 94 Room Air 03/02/17 20:00 99 Room Air 03/02/17 19:24 36.3 65 18 122/85 (97) 97 Room Air 03/02/17 16:00 Room Air 03/02/17 15:28 36.5 73 18 121/73 (89) 96 Room Air 03/02/17 12:00 36.7 69 16 129/79 (96) 96 03/02/17 12:00 Room Air Physical Exam General: + well developed, + well nourished, No distress CV: + RRR Pulmonary: + lungs clear, No accessory muscle use, No respiratory distress Radiology CXR today shows left sided pneumothorax present Drains / Tubes chest tube (air leak noted; minimal drainage last 24 hours) Assessment & Plan 36 year old male with spontaneous pneumothorax -concern noted for tension pneumothorax in ED: -ED physician insertion pigtail catheter with clinical improvement, but incomplete resolution of pneumothorax CT scan of chest (03/01/17) showed presence of blebs -20 Vietnamese chest tube inserted in ED with near complete resolution of pneumothorax -continue chest tube -due to continue air leak pt. will require surgical bleb stapling--tent. planned for 03/04/17 -encourage ambulation and use of IS OTHER -lovenox for DVT prevention-will hold dose tomorrow due to planned surgery
--- NOTE | 2017-03-03 17:22 | Progress Note ---
Medicine Progress Note Date & Time of Visit: Mar 03, 2017 at 14:30 . Subjective Experienced some discomfort from left-sided chest tube. Otherwise, doing well. No shortness of breath. . Objective Last 8 Hrs Date Time Temp Pulse Resp B/P (MAP) Pulse Ox O2 Delivery O2 Flow Rate FiO2 03/03/17 17:17 36.7 67 18 134/89 (104) 96 Room Air 03/03/17 16:00 96 Room Air 03/03/17 12:01 36.6 65 20 121/75 (90) 96 Room Air 03/03/17 12:00 96 Room Air Physical Exam: General- no distress Neck- trachea midline Lungs- clear to auscultation Heart- regular Thorax- left-sided chest tube Abdomen- normal bowel sounds, soft, nontender Extremities- no edema or calf tenderness Neuro- alert . Diagnostic Imaging: CHEST ONE VIEW PORTABLE FINDINGS: Cardiac silhouette is within normal limits. Right lung is clear. Large bore left-sided chest tube is again seen with distal tip projecting at the left lung apex. Moderate sized left pneumothorax is again seen which appears with stable to slightly decreased in size from comparison study 03/02/2017. Linear subsegmental opacities of the left lung base suggest atelectasis. Hyperinflation with emphysematous changes redemonstrated. Bones are grossly intact. IMPRESSION: Stable positioning of left-sided chest tube with stable to slightly decreased size of left pneumothorax. Electronically signed by: Wes Drake M.D. 03/03/2017 7:36 AM Dictated Date/Time: 03/03/2017 7:33 AM . Assessment & Plan SPONTANEOUS LEFT TENSION PNEUMOTHORAX Presented with acute chest pain, dyspnea, hypotension. Found to have a tension pneumothorax. Pleural pigtail catheter insertion with partial reexpansion of left lung. 20 Latvian chest tube inserted with better expansion of the lung. Thoracic Surgery consulted. CT imaging demonstrated blebs. Stapling of blebs anticipated on 03/04. VTE PROPHYLAXIS SCDs initially ordered. SQ enoxaparin added- hold tomorrow morning for surgery. Ambulate as able. DISPOSITION Anticipate return to [facility] when medically stable. . Current Inpatient Medications: Current Inpatient Medications Medications (Trade) Dose Ordered Sig/Avinash Route Start Time Stop Time Status Last Admin Dose Admin Ioversol (Optiray 320) 100 ml UD PRN IV 03/01/17 12:45 03/05/17 12:44 Al Hydrox/Mg Hydrox/Simethicone (Maalox Max Susp) 15 ml Q4H PRN PO 03/01/17 14:45 03/31/17 14:44 Morphine Sulfate (MoRPHine SULFATE INJ) 2 mg Q4 PRN IV 03/01/17 14:45 03/15/17 14:44 03/03/17 02:44 2 MG Acetaminophen (Tylenol Tab) 650 mg Q6 PO 03/01/17 18:00 03/31/17 17:59 03/03/17 07:49 650 MG Ketorolac Tromethamine (Toradol Inj) 15 mg Q6H PRN IV 03/01/17 16:45 03/06/17 16:44 03/01/17 21:01 15 MG Oxycodone HCl (Roxicodone Immediate Rel Tab) 5 mg Q6H PRN PO 03/01/17 16:45 03/15/17 16:44 Enoxaparin Sodium (Lovenox Inj) 40 mg QAM SQ 03/03/17 09:00 04/02/17 08:59 03/03/17 07:50 40 MG
[2017-03-04] VITALS (13 sets, daily range): BP systolic 125–146; BP diastolic 68–95; PULSE 64–80; TEMP 36.5–37.2; O2SAT 94–98
[2017-03-04] MEDS: ACETAMINOPHEN 325 MG TAB PO SCH ×4 (00:12→23:44)
[2017-03-04] MEDS: MoRPHine SULFATE 2 MG/ML CARP IV PRN (00:12)
--- NOTE | 2017-03-04 09:01 | History & Physical Bridge Note ---
H&P Re-Evaluation Bridge Note: I have examined the patient, reviewed the History & Physical and in the interval since the performance of the History & Physical I have noted the following changes of clinical significance: He has a persitent air leak and large apical blebs noted on CV Scan. He will require a thorascopic bleb resection. Will proceed today. Risks and benefits explained.No changes noted
[2017-03-04] MEDS ORDERED: MIDAZOLAM HCL 1 MG/ML 2ML VIAL ONE (11:01)
[2017-03-04] MEDS ORDERED: FENTANYL CITRATE INJ 50 MCG/1 ML 2 ML VIAL ONE (11:01)
[2017-03-04] MEDS ORDERED: LABETALOL HCL IV 5 MG/ML 20ML IV PRN (11:15)
[2017-03-04] MEDS ORDERED: EpHEDrine SULFATE INJ 50 MG/ML AMP IV PRN (11:15)
[2017-03-04] MEDS ORDERED: ATROPINE SULFATE 0.1 MG/ML 5ML SYR IV PRN (11:15)
[2017-03-04] MEDS ORDERED: ONDANSETRON INJ 2 MG/ML 2 ML VIAL IV PRN ×2 (11:15→12:30)
[2017-03-04] MEDS ORDERED: HYDROmorphone INJ 1 MG/ML SYR IV PRN (11:15)
[2017-03-04] MEDS ORDERED: MEPERIDINE HCL 25 MG/ML CARP IV PRN (11:15)
[2017-03-04] MEDS ORDERED: FENTANYL CITRATE INJ 50 MCG/1 ML 2 ML VIAL IV PRN (11:15)
[2017-03-04] MEDS ORDERED: BUPIVACAINE LIPOSOME 1/3% 266 MG/20 ML VIAL INFIL ONE (11:37)
[2017-03-04] MEDS ORDERED: SODIUM CHLORIDE 0.9% PF 50 ML VIAL ONE (11:37)
[2017-03-04] MEDS ORDERED: ONDANSETRON INJ 2 MG/ML 2 ML VIAL ONE (12:21)
[2017-03-04] MEDS ORDERED: DEXAMETHASONE SOD INJ 4 MG/ML VIAL ONE (12:21)
[2017-03-04] MEDS ORDERED: PROPOFOL IV EMULSION 10 MG/ML 20 ML VIAL IV ONE (12:21)
[2017-03-04] MEDS ORDERED: GLYCOPYRROLATE INJ 0.2 MG/ML VIAL ONE (12:21)
[2017-03-04] MEDS ORDERED: NEOSTIGMINE METHYLSULFATE 5 MG/5 ML SYR ONE (12:21)
[2017-03-04] MEDS ORDERED: LIDOCAINE HCL 2% 2 ML VIAL (20MG/ML) ONE (12:21)
[2017-03-04] MEDS ORDERED: ROCURONIUM BROMIDE 10 MG/ML 5 ML VIAL IV ONE (12:21)
[2017-03-04] MEDS ORDERED: CEFAZOLIN SOD 1 GM VIAL ONE (12:41)
[2017-03-04] MEDS: D5W AND 1/2NSS 1,000 ML IV SCH ×2 (12:45→21:59)
--- NOTE | 2017-03-04 13:06 | DIAGNOSTIC IMAGING REPORT ---
CHEST ONE VIEW PORTABLE CLINICAL HISTORY: 36 years-old Male presenting with bleb stapling . TECHNIQUE: Portable upright AP view of the chest was obtained. COMPARISON: 03/03/2017. FINDINGS: Large bore left pleural drain terminates at the left apex, unchanged. Associated soft tissue emphysema along the left lateral chest wall. Cardiomediastinal silhouette normal. Linear opacities in the mid to lower right lung and left mid lung, slightly increased from prior. No significant residual pneumothorax. Osseous structures normal. Upper abdomen normal. IMPRESSION: 1. No significant residual left pneumothorax with stable positioning of the large bore left pleural drain. 2. Stable slightly increased bilateral atelectasis. Electronically signed by: Josué Horton M.D. 03/04/2017 1:05 PM Dictated Date/Time: 03/04/2017 1:02 PM
--- NOTE | 2017-03-04 13:50 | Anesthesiology Progress Note ---
Anesthesia Post Op Note Date & Time Mar 04, 2017 at 13:50 Vital Signs Pain Intensity: 0 Vital Signs Past 12 Hours Date Time Temp Pulse Resp B/P (MAP) Pulse Ox O2 Delivery O2 Flow Rate FiO2 03/04/17 13:15 36.4 65 16 149/100 99 Nasal Cannula 2 03/04/17 13:05 67 14 149/97 99 Nasal Cannula 2 03/04/17 12:55 63 15 159/103 100 Oxymask 8 03/04/17 12:45 80 16 149/109 100 Oxymask 8 03/04/17 12:37 36.6 91 16 163/90 96 Oxymask 8 03/04/17 08:00 96 Room Air 03/04/17 07:49 36.6 80 20 128/88 (101) 95 Room Air 03/04/17 04:12 36.6 64 18 146/95 (112) 94 Room Air 03/04/17 04:00 Room Air Notes Mental Status: alert / awake / arousable, participated in evaluation Pt Amnestic to Procedure: Yes Nausea / Vomiting: adequately controlled Pain: adequately controlled Airway Patency, RR, SpO2: stable & adequate BP & HR: stable & adequate Hydration State: stable & adequate Anesthetic Complications: no major complications apparent
--- NOTE | 2017-03-04 14:09 | OPERATIVE REPORT ---
DATE OF OPERATION: 03/04/2017 PREOPERATIVE DIAGNOSES: 1. Spontaneous left pneumothorax. 2. Apical blebs. 3. Persistent air leak. POSTOPERATIVE DIAGNOSES: Same. PROCEDURE: 1. Left thoracoscopy with apical resection of left apical blebs. 2. Wedge resection of blebs, superior segment left lower lobe. SURGEON: Dr. Hsu. CLEANING SPECIALIST: MARIO Chapman. ANESTHESIA: General anesthesia endotracheal intubation. SPECIFICS OF PROCEDURE: This is a 36-year-old smoker who is currently incarcerated at [facility], who presented with a spontaneous pneumothorax on Saturday with under some pressure. We placed a chest tube in the Emergency Room and admitted him. A CT scan showed he did have blebs of the apical segment of the left upper lobe. I admitted him and his air leak in the chest tube did not stop. For this reason, I told him I thought that excising this would be helpful. DESCRIPTION OF PROCEDURE: On 03/04/2017, the patient was brought to the operating room and underwent uncomplicated thoracoscopic resection. We did this totally thoracoscopically with two 5 mm ports and a 12 mm port. A chest tube was placed through the original chest tube site at the conclusion of the case. We wedged out the apical segment of the left upper lobe and a small segment of the superior segment of the left lower lobe. There was no air leak at the conclusion of the case. MARIO Chapman was there for the entirety of the case acting as a front office assistant. We proceeded on the morning of 03/04/2017. The patient's chest tube was removed after he had been placed in right lateral decubitus position and his left chest was then prepped and draped in usual sterile fashion. Very low ventilatory volumes were used for hand ventilating. After prepping and draping, administering an appropriate prophylactic antibiotics and following a time out, I went through this original chest tube site with a 5 mm port and placed a 5 mm scope. It could be seen there were obvious bullae but these were tethered to the apex. Another 5 mm port was placed below the scapula and a 12 mm port was placed a few interspaces below more anterior. With the use of these, I used a Harmonic scalpel and using retraction, I took down these adhesions. I could easily see these bullae and we saw the area where the leak was. Using an Endo-RODRÍGUEZ stapler, I fired across this and removed a generous portion of the left upper lobe. Upon inflating the lung, we saw no air leak at the staple lines or from the left upper lobe. There was bullae in the superior segment of the left lower lobe and I excised this using a single firing of the Endo-RODRÍGUEZ stapler. Both these bullae delivered off the field using an Endobag. We saw no significant air leak. A chest tube was reinserted through the anterior port and sutured in place with heavy silk suture directed towards the apex. The one irrigation was then suctioned out. A single 0 Vicryl was used to close the muscle layer of 12 mm port and then 4-0 Monocryl was used in running subcuticular fashion to approximate the wound edges. Heavy silk dressing was used to hold the chest tube in place. The patient tolerated the procedure well. He really had very little pain as we had performed a block by using 266 mg of Exparel and 60 mL total of normal saline and blocked the 2nd to 11th rib. He tolerated it quite well. He was extubated and transferred to the postanesthesia care unit in stable condition. I attest to the content of the Intraoperative Record and any orders documented therein. Any exception s are noted below.
[2017-03-04] MEDS: METOCLOPRAMIDE HCL INJ 5 MG/ML 2 ML VIAL IV. SCH ×2 (14:19→21:30)
[2017-03-04] MEDS: CEFAZOLIN IV 2,000 MG in SYRINGE 0 ML IV SCH ×2 (14:19→21:59)
--- NOTE | 2017-03-04 19:51 | Progress Note ---
Medicine Progress Note Date & Time of Visit: Mar 04, 2017 at 15:00 . Subjective Left thoracoscopy with resection of blebs performed today by Dr. Hsu. Doing well postoperatively. No SOB. Postop pain well-controlled. . Objective Last 8 Hrs Date Time Temp Pulse Resp B/P (MAP) Pulse Ox O2 Delivery O2 Flow Rate FiO2 03/04/17 18:19 37.2 76 18 134/82 (99) 97 03/04/17 17:31 97 Room Air 03/04/17 17:14 37.1 80 125/78 (94) 03/04/17 16:00 96 Room Air 03/04/17 15:32 36.9 77 18 129/84 (99) 97 Room Air 03/04/17 15:31 37.1 80 20 125/78 (94) 97 Nasal Cannula 03/04/17 14:31 36.6 72 18 135/78 (97) 97 Room Air 03/04/17 13:45 36.5 68 18 139/68 (91) 98 Room Air 03/04/17 13:15 36.4 65 16 149/100 99 Nasal Cannula 2 03/04/17 13:05 67 14 149/97 99 Nasal Cannula 2 03/04/17 12:55 63 15 159/103 100 Oxymask 8 03/04/17 12:45 80 16 149/109 100 Oxymask 8 03/04/17 12:37 36.6 91 16 163/90 96 Oxymask 8 Physical Exam: General- no distress Neck- trachea midline Lungs- clear to auscultation Heart- regular Thorax- left-sided chest tube Abdomen- normal bowel sounds, soft, nontender Extremities- no edema or calf tenderness Neuro- alert . Assessment & Plan SPONTANEOUS LEFT TENSION PNEUMOTHORAX Presented with acute chest pain, dyspnea, hypotension. Found to have a tension pneumothorax. Pleural pigtail catheter insertion with partial reexpansion of left lung. 20 Hebrew chest tube inserted with better expansion of the lung. Thoracic Surgery consulted. CT imaging demonstrated blebs. Left thoracoscopy with resection of blebs performed today by Dr. Hsu. VTE PROPHYLAXIS SCDs initially ordered. SQ enoxaparin added- hold tomorrow morning for surgery. Ambulate as able. DISPOSITION Anticipate return to [facility] when medically stable. . Current Inpatient Medications: Current Inpatient Medications Medications (Trade) Dose Ordered Sig/Avinash Route Start Time Stop Time Status Last Admin Dose Admin Ioversol (Optiray 320) 100 ml UD PRN IV 03/01/17 12:45 03/05/17 12:44 Al Hydrox/Mg Hydrox/Simethicone (Maalox Max Susp) 15 ml Q4H PRN PO 03/01/17 14:45 03/31/17 14:44 Morphine Sulfate (MoRPHine SULFATE INJ) 2 mg Q4 PRN IV 03/01/17 14:45 03/15/17 14:44 03/04/17 00:12 2 MG Acetaminophen (Tylenol Tab) 650 mg Q6 PO 03/01/17 18:00 03/31/17 17:59 03/04/17 00:12 650 MG Ketorolac Tromethamine (Toradol Inj) 15 mg Q6H PRN IV 03/01/17 16:45 03/06/17 16:44 03/01/17 21:01 15 MG Oxycodone HCl (Roxicodone Immediate Rel Tab) 5 mg Q6H PRN PO 03/01/17 16:45 03/15/17 16:44 Enoxaparin Sodium (Lovenox Inj) 40 mg QAM SQ 03/03/17 09:00 04/02/17 08:59 Future Hold 03/03/17 07:50 40 MG Dextrose/Sodium Chloride 1,000 ml @ 100 mls/hr Q10H IV 03/04/17 12:45 04/03/17 12:44 03/04/17 12:45 100 MLS/HR Ondansetron HCl (Zofran Inj) 4 mg Q4H PRN IV 03/04/17 12:30 04/03/17 12:29 Docusate Sodium (coLACE CAP) 100 mg BID PO 03/04/17 21:00 04/03/17 20:59 Cefazolin Sodium 2000 mg/Syringe 10 ml @ 2.5 mls/min Q8H IV 03/04/17 14:00 03/04/17 22:03 03/04/17 14:19 2.5 MLS/MIN Metoclopramide HCl (Reglan Inj) 10 mg Q8 IV. 03/04/17 14:00 03/05/17 13:59 03/04/17 14:19 10 MG
[2017-03-04] MEDS ORDERED: NURSING VERBAL MED ORDER ONE (20:15)
[2017-03-04] MEDS ORDERED: COUGH DROP (SUGAR FREE) LOZ 24 LOZ/1 BOX PO PRN (20:30)
[2017-03-04] MEDS: DOCUSATE SODIUM 100 MG CAP PO SCH (21:30)
[2017-03-05] VITALS (10 sets, daily range): BP systolic 118–139; BP diastolic 72–90; PULSE 59–68; TEMP 36.4–37.3; O2SAT 94–98
[2017-03-05] MEDS: METOCLOPRAMIDE HCL INJ 5 MG/ML 2 ML VIAL IV. SCH (05:17)
[2017-03-05] MEDS: ACETAMINOPHEN 325 MG TAB PO SCH ×4 (05:18→23:51)
--- NOTE | 2017-03-05 07:17 | DIAGNOSTIC IMAGING REPORT ---
CHEST ONE VIEW PORTABLE CLINICAL HISTORY: bleb stapling COMPARISON STUDY: 03/04/2017 FINDINGS: The cardiac and mediastinal contours remain stable. There is a left-sided chest tube. There is a left apical pneumothorax the pleural separation of 21 mm. Indistinctness of aortic knob is likely secondary to left upper lobe atelectatic change. The right lung is clear. There are no pleural effusions. There is no failure.[ IMPRESSION: 1. Postsurgical changes at the left lung apex 2. No change in the position of the left-sided chest tube. 21 mm left apical pneumothorax. Electronically signed by: Esteban lOivera M.D. 03/05/2017 7:15 AM Dictated Date/Time: 03/05/2017 7:14 AM
[2017-03-05] MEDS: D5W AND 1/2NSS 1,000 ML IV SCH (08:05)
[2017-03-05] MEDS: DOCUSATE SODIUM 100 MG CAP PO SCH ×2 (08:06→19:45)
--- NOTE | 2017-03-05 08:06 | Anesthesiology Progress Note ---
Anesthesia Post Op Note Date & Time Mar 05, 2017 at 08:06 Vital Signs Pain Intensity: 0.0 Vital Signs Past 12 Hours Date Time Temp Pulse Resp B/P (MAP) Pulse Ox O2 Delivery O2 Flow Rate FiO2 03/05/17 04:00 Room Air 03/05/17 03:35 37.1 66 18 132/85 (101) 96 Room Air 03/05/17 00:11 36.8 65 18 136/90 (105) 94 Room Air 03/05/17 00:01 96 Room Air 03/04/17 20:19 36.8 75 18 130/84 (99) 96 Room Air Notes Mental Status: alert / awake / arousable, participated in evaluation Pt Amnestic to Procedure: Yes Nausea / Vomiting: adequately controlled Pain: adequately controlled Airway Patency, RR, SpO2: stable & adequate BP & HR: stable & adequate Hydration State: stable & adequate Anesthetic Complications: no major complications apparent
--- NOTE | 2017-03-05 09:49 | SURGERY PROGRESS NOTE ---
DATE: 03/05/2017 Mr. Meléndez is seen 1 day status post thoracoscopic resection of apical blebs from the left upper lobe and the superior segment of left lower lobe. The patient had persistent air leak in the recovery room which he did not have in the operating room. I was a bit concerned that he may have split one of his staple lines in emerging from anesthesia. At any rate, his x-rays showed a fully expanded lung and the air leak was not severe, so we watched him and this morning he looks much better. He did have a small pneumothorax on water seal; however, upon hooking him back up to suction, his air leak is intermittent and very small. This should stop in the next 24-48 hours. He drained very little from his chest tube. Otherwise, I think he looks quite good. ASSESSMENT AND PLAN: Postoperative day #1 status post left thoracoscopy with bleb resection. I would discontinue this patient's monitor and all IVs. I would transfer him to a regular room and I think he needs to ambulate quite a bit. He should also be up in the chair for all meals. JOSEPH
--- NOTE | 2017-03-05 20:02 | Progress Note ---
Medicine Progress Note Date & Time of Visit: Mar 05, 2017 at 19:30 . Subjective Less chest discomfort from chest tube. Has persistent small leak. No SOB. . Objective Last 8 Hrs Date Time Temp Pulse Resp B/P (MAP) Pulse Ox O2 Delivery O2 Flow Rate FiO2 03/05/17 19:57 Room Air 03/05/17 19:47 36.7 68 16 139/79 (99) 98 Room Air 03/05/17 16:00 Room Air 03/05/17 15:44 36.6 61 16 128/80 (96) 97 Room Air 03/05/17 12:17 Room Air Physical Exam: General- no distress Neck- trachea midline Lungs- clear to auscultation Heart- regular Thorax- left-sided chest tube Abdomen- normal bowel sounds, soft, nontender Extremities- no edema or calf tenderness Neuro- alert . Assessment & Plan SPONTANEOUS LEFT TENSION PNEUMOTHORAX Presented with acute chest pain, dyspnea, hypotension. Found to have a tension pneumothorax. Pleural pigtail catheter insertion with partial reexpansion of left lung. 20 Guatemalan chest tube inserted with better expansion of the lung. Thoracic Surgery consulted. CT imaging demonstrated blebs. Left thoracoscopy with resection of blebs performed 03/04/[address] Hsu. Has persistent leak. Chest tube management per Thoracic Surgery. VTE PROPHYLAXIS SCDs. Ambulate as able. DISPOSITION Anticipate return to [facility] when medically stable. . Current Inpatient Medications: Current Inpatient Medications Medications (Trade) Dose Ordered Sig/Avinash Route Start Time Stop Time Status Last Admin Dose Admin Al Hydrox/Mg Hydrox/Simethicone (Maalox Max Susp) 15 ml Q4H PRN PO 03/01/17 14:45 03/31/17 14:44 Morphine Sulfate (MoRPHine SULFATE INJ) 2 mg Q4 PRN IV 03/01/17 14:45 03/15/17 14:44 03/04/17 00:12 2 MG Acetaminophen (Tylenol Tab) 650 mg Q6 PO 03/01/17 18:00 03/31/17 17:59 03/05/17 18:36 650 MG Ketorolac Tromethamine (Toradol Inj) 15 mg Q6H PRN IV 03/01/17 16:45 03/06/17 16:44 03/01/17 21:01 15 MG Oxycodone HCl (Roxicodone Immediate Rel Tab) 5 mg Q6H PRN PO 03/01/17 16:45 03/15/17 16:44 Enoxaparin Sodium (Lovenox Inj) 40 mg QAM SQ 03/03/17 09:00 04/02/17 08:59 Future Hold 03/03/17 07:50 40 MG Ondansetron HCl (Zofran Inj) 4 mg Q4H PRN IV 03/04/17 12:30 04/03/17 12:29 Docusate Sodium (coLACE CAP) 100 mg BID PO 03/04/17 21:00 04/03/17 20:59 03/05/17 19:45 100 MG Menthol (Nice Santhosh) 1 santhosh PRN PRN PO 03/04/17 20:30 04/03/17 20:29 03/04/17 21:30 1 SANTHOSH
[2017-03-06 04:00] VITALS: BP 119/72; PULSE 68; TEMP 36.5; O2SAT 96
[2017-03-06] MEDS: ACETAMINOPHEN 325 MG TAB PO SCH ×4 (05:43→23:41)
--- NOTE | 2017-03-06 07:34 | DIAGNOSTIC IMAGING REPORT ---
CHEST ONE VIEW PORTABLE CLINICAL HISTORY: bleb stapling COMPARISON STUDY: 03/05/2017 FINDINGS: The cardiac and mediastinal contours remain stable. Indistinctness of the aortic knob is felt to be secondary to left upper lobe atelectatic change. There is a left-sided chest tube unchanged in position. Suture lines are visualized the left apex. There is no pneumothorax. There is trace subcutaneous changes emphysema on the left. The right lung remains clear.[ No pleural effusions are visualized. IMPRESSION: No change the position left-sided chest tube. No pneumothorax is visualized. Electronically signed by: Esteban Olivera M.D. 03/06/2017 7:32 AM Dictated Date/Time: 03/06/2017 7:31 AM
[2017-03-06 07:43] VITALS: BP 135/86; PULSE 68; TEMP 36.7; O2SAT 95
[2017-03-06] MEDS: DOCUSATE SODIUM 100 MG CAP PO SCH ×2 (08:14→21:00)
[2017-03-06] MEDS: ENOXAPARIN 40 MG/0.4 ML SYR SQ SCH (11:18)
[2017-03-06 11:38] VITALS: O2SAT 97
[2017-03-06 15:52] VITALS: BP 128/84; PULSE 71; TEMP 36.8; O2SAT 97
--- NOTE | 2017-03-06 17:04 | SURGERY PROGRESS NOTE ---
DATE: 03/06/2017 HISTORY OF PRESENT ILLNESS: Mr. Meléndez was seen today 2 days status post a thoracoscopic apical bleb resection. The patient has no air leak. His lung is completely expanded on chest x-ray. I am going to remove his chest tube and let him return to [facility] tomorrow. He looks very good and has been ambulating in the hallways, on room air with no IVs.
--- NOTE | 2017-03-06 22:13 | Progress Note ---
Medicine Progress Note Date & Time of Visit: Mar 06, 2017 at 218:50 . Subjective Doing well. No chest pain. No SOB. . Objective Last 8 Hrs Date Time Temp Pulse Resp B/P (MAP) Pulse Ox O2 Delivery O2 Flow Rate FiO2 03/06/17 15:52 36.8 71 18 128/84 (99) 97 Room Air 03/06/17 15:05 Room Air Physical Exam: General- no distress Neck- trachea midline Lungs- clear to auscultation Heart- regular Thorax- left-sided chest tube Abdomen- normal bowel sounds, soft, nontender Extremities- no edema or calf tenderness Neuro- alert . Assessment & Plan SPONTANEOUS LEFT TENSION PNEUMOTHORAX Presented with acute chest pain, dyspnea, hypotension. Found to have a tension pneumothorax. Pleural pigtail catheter insertion with partial reexpansion of left lung. 20 Albanian chest tube inserted with better expansion of the lung. Thoracic Surgery consulted. CT imaging demonstrated blebs. Left thoracoscopy with resection of blebs performed 03/04/[address] Hsu. Chest tube management per Thoracic Surgery. VTE PROPHYLAXIS SCDs. Ambulate as able. DISPOSITION Anticipate return to [facility] when medically stable. . Current Inpatient Medications: Current Inpatient Medications Medications (Trade) Dose Ordered Sig/Avinash Route Start Time Stop Time Status Last Admin Dose Admin Al Hydrox/Mg Hydrox/Simethicone (Maalox Max Susp) 15 ml Q4H PRN PO 03/01/17 14:45 03/31/17 14:44 Morphine Sulfate (MoRPHine SULFATE INJ) 2 mg Q4 PRN IV 03/01/17 14:45 03/15/17 14:44 03/04/17 00:12 2 MG Acetaminophen (Tylenol Tab) 650 mg Q6 PO 03/01/17 18:00 03/31/17 17:59 03/06/17 18:29 650 MG Oxycodone HCl (Roxicodone Immediate Rel Tab) 5 mg Q6H PRN PO 03/01/17 16:45 03/15/17 16:44 Enoxaparin Sodium (Lovenox Inj) 40 mg QAM SQ 03/03/17 09:00 04/02/17 08:59 Future hold 03/06/17 11:18 40 MG Ondansetron HCl (Zofran Inj) 4 mg Q4H PRN IV 03/04/17 12:30 04/03/17 12:29 Docusate Sodium (coLACE CAP) 100 mg BID PO 03/04/17 21:00 04/03/17 20:59 03/05/17 19:45 100 MG Menthol (Nice Santhosh) 1 santhosh PRN PRN PO 03/04/17 20:30 04/03/17 20:29 03/04/17 21:30 1 SANTHOSH
[2017-03-06 23:10] VITALS: BP 126/79; PULSE 58; TEMP 36.8; O2SAT 97
[2017-03-07] MEDS: ACETAMINOPHEN 325 MG TAB PO SCH (05:43)
[2017-03-07 07:22] VITALS: BP 126/79; PULSE 62; TEMP 36.8; O2SAT 97
--- NOTE | 2017-03-07 07:25 | DIAGNOSTIC IMAGING REPORT ---
CHEST ONE VIEW PORTABLE CLINICAL HISTORY: 36 years-old Male presenting with pneumothorax. TECHNIQUE: Portable upright AP view of the chest was obtained. COMPARISON: 03/06/2017. FINDINGS: Large bore left pleural drain remains positioned at the left apex. Cardiomediastinal silhouette normal. Suture margin noted at the left apex. Lungs and pleural spaces otherwise clear without evidence of pneumothorax. Osseous structures normal. Upper abdomen normal. IMPRESSION: 1. No pneumothorax. Electronically signed by: Josué Horton M.D. 03/07/2017 7:24 AM Dictated Date/Time: 03/07/2017 7:23 AM
[2017-03-07] MEDS: ENOXAPARIN 40 MG/0.4 ML SYR SQ SCH (08:15)
[2017-03-07] MEDS ORDERED: ACET-1047 PO (08:51)
[2017-03-07] MEDS ORDERED: CLC100X PO (08:51)
--- NOTE | 2017-03-07 08:55 | Discharge Instructions ---
Discharge Instructions Date of Service Mar 07, 2017. Admission Reason for Admission: Tension Pneumothorax, Spontaneous Discharge Discharge Diagnosis / Problem: Tension Pneumothorax, Spontaneous Discharge Goals Goal(s): Decrease discomfort, Improve function, Learn about illness Activity Recommendations Activity Limitations: as noted below Lifting Limitations: none 1. You may remove dressing in 3 days and shower thereafter. No tub baths. 2. You may not fly in an airplane until cleared to do so by Dr. Hsu. . Instructions / Follow-Up Instructions / Follow-Up 1. Office appointment with Dr. Hsu in 2 weeks. Office will call to arrange date and time of appointment. Go to hospital 1 hour before appointment to have a chest x-ray. Current Hospital Diet Patient's current hospital diet: Regular Diet Discharge Diet Recommended Diet: Regular Diet Procedures Procedures Performed: Left Video Assisted Thoracoscopy with BLEB Stapeling Pending Studies Studies pending at discharge: no Medical Emergencies . Who to Call and When: Medical Emergencies: If at any time you feel your situation is an emergency, please call 911 immediately. . Non-Emergent Contact Non-Emergency issues call your: Surgeon Call Non-Emergent contact if: you have a fever, your pain is not controlled, wound has increased drainage . "Provider Documentation" section prepared by Bjorn Wooten. . VTE Core Measure Inpt VTE Proph given/why not?: Enoxaparin (Lovenox)SQ, Treatment not indicated
[2017-03-07] MEDS ORDERED: DOCUSATE SODIUM 100 MG CAP PO PRN (09:00)
--- NOTE | 2017-03-07 09:02 | DIAGNOSTIC IMAGING REPORT ---
CHEST ONE VIEW PORTABLE CLINICAL HISTORY: Chest tube removal. COMPARISON STUDY: 03/07/2017 FINDINGS: The left-sided chest tube has been removed. There is persistent indistinctness of the left medial upper lobe, likely atelectatic. No pneumothorax is visualized. There are no pleural effusions. There is a left apical suture line.[ IMPRESSION: No evidence of pneumothorax status post left-sided chest tube removal. Electronically signed by: Esteban Olivera M.D. 03/07/2017 9:01 AM Dictated Date/Time: 03/07/2017 8:59 AM
--- NOTE | 2017-03-07 09:12 | DISCHARGE SUMMARY ---
DISCHARGE DIAGNOSES: 1. Spontaneous left pneumothorax. 2. Apical blebs. 3. History of cigarette smoking. 4. Coronary calcifications. HOSPITAL COURSE: This is a 36-year-old male who is an inmate at [facility], who noted acute onset of shortness of breath and pain. He came into the Emergency Room on 03/01/2017, was found to have a tension pneumothorax. He was decompressed with a small catheter but had incomplete expansion of his lung, so I placed a 20-Portuguese chest tube on 03/01/2017. We watched him over the weekend and he had a small pneumothorax but more importantly had a very large air leak. A CT scan showed significant apical blebs on the left side. He also had some blebs on the right. On 03/04/2017, I took the patient to the operating room and did an uncomplicated left thoracoscopic apical bleb resection. He also had a single bleb on the superior segment of his left lower lobe. These were resected. He really did not have an air leak at the time of surgery. He had a small air leak the following day on Saturday. The following day on postop day 2, he did not have an air leak and I elected to leave the tube in overnight, and then the following day on postop day 3, we removed his chest tube. His post chest tube x-ray showed no evidence of pneumothorax. He really had very little in the way of pain. His incisions were clean. We gave him discharge instructions. We will see him back in the next 2 weeks with a chest x-ray. JOSEPH
[2017-03-07 09:38] VITALS: BP 126/79; PULSE 62; TEMP 36.8; O2SAT 97
== END 2017-03-07 10:00 | DRG 165 ==
LOC: C.EDB 12:34 → UNDOADMIN 13:00 → C.2T 13:00 → ENRESERV 14:47 → CANRESERV 14:47 → ENRESERV 16:42 → C.2T 03-04 13:33 → ENRESERV 03-05 19:50 → C.MSW 03-05 21:47
PROVIDERS: ADMIT Family Medicine; ATTEND Surgery
PROC: 0B9P30Z Drainage of Left Pleura with Drainage Device, Percutaneous Approach (ICD-10-PCS; 2017-03-01)
PROC: 0BBJ4ZZ Excision of Left Lower Lung Lobe, Percutaneous Endoscopic Approach (ICD-10-PCS; principal; 2017-03-04 09:00)
PROC: 0BBG4ZZ Excision of Left Upper Lung Lobe, Percutaneous Endoscopic Approach (ICD-10-PCS; principal; 2017-03-04 09:00)
DX: J93.0 Spontaneous tension pneumothorax (principal); J45.909 Unspecified asthma, uncomplicated; F17.210 Nicotine dependence, cigarettes, uncomplicated; Z79.1 Long term (current) use of non-steroidal anti-inflammatories (NSAID); Z79.82 Long term (current) use of aspirin; Z82.49 Family history of ischemic heart disease and other diseases of the circulatory system